=== PATIENT | female | born 1945 | race Caucasian/White ===

== ENCOUNTER 2023-06-11 10:49 | Emergency (ER) | payer MEDICARE ==
--- NOTE | 2023-06-11 11:14 | ERPHSYRPT ---
- History of Present Illness Time Seen by Provider: 06/11/23 11:05 Source: patient, family Exam Limitations: no limitations Physician History: This is a 77-year-old white female patient of Dr. Miller who was brought into the emergency department by the patient's son secondary to dizziness symptoms over the last 2 days. Patient did fall onto her left shoulder on Tuesday prior to this evaluation. However, she does not recall losing consciousness or hitting her head. Patient does have a history of dementia. Patient was placed on Bactrim DS to treat recent urinary tract infection. This is the only new medication that she is on. Patient does complain of some nausea without vomiting or diarrhea. Patient denies chest pain. Patient denies shortness of breath. Patient denies abdominal pain. Patient also states that she feels weak and confused. Patient has a history of dementia, hypertension, coronary artery disease (has a pacemaker/defibrillator in place), gastroesophageal reflux disease, anxiety and depression. Timing/Duration: day(s), worse Severity: mild Character of Deficits: none Deficits: no difficulties Baseline/Normal Cognition: alert oriented x 3 Current Cognition: alert oriented x 3 Baseline Gait: walks w/o assistance Associated Symptoms: confusion, nausea, weakness, No loss of consciousness, No vomiting, No slurred speech, No trouble walking, No vision changes Allergies/Adverse Reactions: No Known Drug Allergies Allergy (Unverified 06/11/23 11:05) Travel Risk - International Travel Have you traveled outside of the country in past 3 weeks: No - Emerging Infectious Disease Are you exhibiting symptoms associated with any current EIDs: No - Review of Systems Constitutional: Weakness Eyes: No Symptoms Ears, Nose, & Throat: No Symptoms Respiratory: No Symptoms Cardiac: No Symptoms Abdominal/Gastrointestinal: Nausea Genitourinary Symptoms: No Symptoms Musculoskeletal: No Symptoms Skin: No Symptoms Neurological: Dizziness Psychological: No Symptoms Endocrine: No Symptoms Hematologic/Lymphatic: No Symptoms Immunological/Allergic: No Symptoms All Other Systems: Reviewed and Negative - Past Medical History Neurological History: Dementia Cardiac History: Coronary Artery Disease, Hypertension GI Medical History: GERD Psycho-Social History: Anxiety, Depression - Past Surgical History Past Surgical History: Yes Cardiac: Internal Defibrillator, Pacemaker Musculoskeletal: Orthopedic Surgery Other Surgical History: ankle surgery - Nursing Vital Signs Nursing Vital Signs: Initial Vital Signs Temperature 97.5 F 06/11/23 11:18 Pulse Rate 84 06/11/23 11:18 Respiratory Rate 18 06/11/23 11:18 Blood Pressure 109/67 06/11/23 11:18 O2 Sat by Pulse Oximetry 97 06/11/23 11:18 Pain Scale Pain Intensity 4 - Alivia Coma Scale Best Eye Response (Alivia): (4) open spontaneously Best Verbal Response (Alivia): (4) confused conversation Best Motor Response (Alivia): (6) obeys commands Alivia Total: 14 - Physical Exam General Appearance: no apparent distress, alert, anxiety Eye Exam: bilateral eye: normal inspection, PERRL, EOMI Ears, Nose, Throat Exam: normal ENT inspection, moist mucous membranes Neck Exam: normal inspection, non-tender, supple, full range of motion Respiratory: normal breath sounds, lungs clear, airway intact, No chest tenderness, No respiratory distress Cardiovascular: regular rate/rhythm, normal heart sounds, normal peripheral pulses Gastrointestinal: soft, normal bowel sounds, No tenderness Pelvic Exam: not done Rectal Exam: not done Back Exam: normal inspection, normal range of motion, No CVA tenderness, No vertebral tenderness Extremity Exam: normal inspection, normal range of motion, pelvis stable Mental Status: alert, oriented x 3, 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 No acute ischemic changes on today's twelve-lead EKG.) Ordered Tests: Active Orders 24 hr Category Date Time Status EKG-ER Only STAT Care 06/11/23 11:20 Active IV Insertion STAT Care 06/11/23 11:20 Active CERVICAL SPINE WO CONTRAST [CT] Stat Exams 06/11/23 11:29 Completed HEAD WITHOUT CONTRAST [CT] Stat Exams 06/11/23 11:20 Completed SHOULDER Stat Exams 06/11/23 11:29 Taken CBC W DIFF Stat Lab 06/11/23 11:20 Results CMP Stat Lab 06/11/23 11:20 Completed CULTURE,URINE Stat Lab 06/11/23 12:56 Received MAGNESIUM Stat Lab 06/11/23 11:20 Completed Manual Differential NC Stat Lab 06/11/23 11:20 Results Pathologist Review Stat Lab 06/11/23 11:20 Results TROPONIN Q4H Lab 06/11/23 11:20 Completed TROPONIN Q4H Lab 06/11/23 15:30 Ordered TROPONIN Q4H Lab 06/11/23 19:30 Ordered UA W/RFX UR CULTURE Stat Lab 06/11/23 12:56 Completed Medication Summary Discontinued Medications Generic Name Dose Route Start Last Admin Trade Name Wendy PRN Reason Stop Dose Admin Acetaminophen 650 mg 06/11/23 11:31 06/11/23 11:36 Acetaminophen 325 Mg Tablet PO 06/11/23 11:32 650 mg STAT STA Administration Acetaminophen Confirm 06/11/23 11:36 Acetaminophen 325 Mg Tablet Administered 06/11/23 11:37 Dose 650 mg .ROUTE .STK-MED ONE Ondansetron HCl 4 mg 06/11/23 11:20 06/11/23 11:24 Ondansetron Hcl 4 Mg/2 Ml Vial IV 06/11/23 11:21 4 mg STAT ONE Administration Ondansetron HCl Confirm 06/11/23 11:23 Ondansetron Hcl 4 Mg/2 Ml Vial Administered 06/11/23 11:24 Dose 4 mg .ROUTE .STK-MED ONE Lab/Rad Data: Laboratory Result Diagrams 06/11/23 11:20 06/11/23 11:20 Laboratory Results 06/11/23 06/11/23 06/11/23 Range/Units 12:56 11:20 11:20 WBC (4.0-10.5) x10^3/uL RBC (4.1-5.4) x10^6/uL Hgb (12.0-16.0) g/dL Hct (35-47) % MCV (78-100) fL MCH (26-32) pg MCHC (32-36) g/dL RDW (11.5-14.0) % Plt Count (150-450) x10^3/uL MPV (7.5-11.0) fL Segmented Neutrophils (36.0-66.0) % Lymphocytes (Manual) (24-44) % Monocytes (Manual) (0.0-12.0) % Eosinophils (Manual) (0.00-3.0) % Platelet Estimate (NORMAL) RBC Morphology Smear Path Review Sodium 133 L (135-145) mmol/L Potassium 3.9 (3.5-5.1) mmol/L Chloride 105 (98-107) mmol/L Carbon Dioxide 18 L (22-30) mmol/L Anion Gap 13.8 (5-15) MEQ/L BUN 14 (7-17) mg/dL Creatinine 0.88 (0.52-1.04) mg/dL Estimated GFR 68.5 ML/MIN Glucose 107 H (74-106) mg/dL Calcium 8.6 (8.4-10.2) mg/dL Magnesium 1.6 (1.6-2.3) mg/dL Total Bilirubin 0.90 (0.2-1.3) mg/dL AST 68 H (14-36) U/L ALT 52 H (0-35) U/L Alkaline Phosphatase 82 (38-126) U/L Troponin I < 0.012 (0.000-0.033) ng/mL Serum Total Protein 6.2 L (6.3-8.2) g/dL Albumin 3.6 (3.5-5.0) g/dL Urine Color Dark Yellow A (Yellow) Urine Appearance Cloudy A (Clear) Urine pH 5.5 (4.6-8.0) Ur Specific [place] 1.025 (1.005-1.030) Urine Protein Trace A (Negative) Urine Glucose (UA) Negative (Negative) mg/dL Urine Ketones 15 A (Negative) Urine Blood Negative (Negative) Urine Nitrite Negative (Negative) Urine Bilirubin Negative (Negative) Urine Urobilinogen 1.0 A (0.2) mg/dL Ur Leukocyte Esterase Small A (Negative) U Hyaline Cast (Auto) 3-5 A (0-2) /LPF Urine Microscopic RBC 6-10 A (0-5) /HPF Urine Microscopic WBC 6-10 A (0-5) /HPF Ur Epithelial Cells Many A (None Seen) /HPF Urine Bacteria Moderate A (None Seen) /HPF Urine Culture Reflexed YES (NO) 06/11/23 Range/Units 11:20 WBC 2.3 L (4.0-10.5) x10^3/uL RBC 3.90 L (4.1-5.4) x10^6/uL Hgb 13.1 (12.0-16.0) g/dL Hct 37.1 (35-47) % MCV 95.1 (78-100) fL MCH 33.6 H (26-32) pg MCHC 35.3 (32-36) g/dL RDW 11.1 L (11.5-14.0) % Plt Count 135 L (150-450) x10^3/uL MPV 10.0 (7.5-11.0) fL Segmented Neutrophils 76 H (36.0-66.0) % Lymphocytes (Manual) 16 L (24-44) % Monocytes (Manual) 6 (0.0-12.0) % Eosinophils (Manual) 2 (0.00-3.0) % Platelet Estimate NORMAL (NORMAL) RBC Morphology NORMAL Smear Path Review Pending Sodium (135-145) mmol/L Potassium (3.5-5.1) mmol/L Chloride (98-107) mmol/L Carbon Dioxide (22-30) mmol/L Anion Gap (5-15) MEQ/L BUN (7-17) mg/dL Creatinine (0.52-1.04) mg/dL Estimated GFR ML/MIN Glucose (74-106) mg/dL Calcium (8.4-10.2) mg/dL Magnesium (1.6-2.3) mg/dL Total Bilirubin (0.2-1.3) mg/dL AST (14-36) U/L ALT (0-35) U/L Alkaline Phosphatase (38-126) U/L Troponin I (0.000-0.033) ng/mL Serum Total Protein (6.3-8.2) g/dL Albumin (3.5-5.0) g/dL Urine Color (Yellow) Urine Appearance (Clear) Urine pH (4.6-8.0) Ur Specific [place] (1.005-1.030) Urine Protein (Negative) Urine Glucose (UA) (Negative) mg/dL Urine Ketones (Negative) Urine Blood (Negative) Urine Nitrite (Negative) Urine Bilirubin (Negative) Urine Urobilinogen (0.2) mg/dL Ur Leukocyte Esterase (Negative) U Hyaline Cast (Auto) (0-2) /LPF Urine Microscopic RBC (0-5) /HPF Urine Microscopic WBC (0-5) /HPF Ur Epithelial Cells (None Seen) /HPF Urine Bacteria (None Seen) /HPF Urine Culture Reflexed (NO) - Progress Progress: re-examined Progress Note: 06/11/23 11:14 My medical decision making and the assignment of moderate complexity to this patient's medical issue today is based on review of the patient's past medical history, review the patient's medication list, review of patient drug allergy list, history present illness and physical findings on examination. The workup in this patient includes placement of intravenous line, infusion of low rate intravenous fluid, CBC, CMP, urinalysis, twelve-lead EKG, troponin level, CT sc an of the head without contrast. Differential diagnosis includes CVA, TIA, worsening dementia, anemia, UTI, dehydration, electrolyte abnormalities 06/11/23 15:01 I interpreted the patient's laboratory data results. Patient does have a urinary tract infection and is mildly dehydrated. The CT scan of the head without contrast was interpreted by radiologist and I reviewed the interpretation. The CT of the scan shows no intracranial extra axial hematoma or hemorrhage. The CT scan of the cervical spine without contrast was interpreted by the radiologist and I reviewed the interpretation. There are no complete pression fractures noted. There was a question of a transverse lying in the styloid region of the patient's cervical spine. This is believed to be artifact. The patient does not have any cervical tenderness whatsoever. She does have finding of mild cervical spondylosis. There is also multilevel mild disc bulges seen causing ventral thecal sac indentation with mild bilateral neuroforaminal narrowing. 06/11/23 15:04 Will encourage the patient to increase oral intake and will remotely send a prescription of cefdinir to her pharmacy since she has completed her Bactrim DS antibiotic and still has evidence of a mild urinary tract infection. We will await the urine culture results to see if it is necessary to change her antibiotics. I interpreted the patient's x-ray of the left shoulder. There is no evidence of any acute fracture or dislocation. 06/11/23 15:07 Counseled pt/family regarding: lab results, diagnosis, rad results Medical Desision Making - Independent Historian Additional History obtained from: Family - Diagnostic Testing Diagnostic test were ordered, analyzed, and reviewed by me: Yes Radiological Interpretation: Interpreted by me, Reviewed by me, Teleradiologist Report - Risk of complications The pt has a mod risk of morbidity or mortality based on: Need for prescription drug management - Departure Departure Disposition: Home Clinical Impression: Weakness, UTI (urinary tract infection), Dehydration, Left shoulder pain Condition: Stable Critical Care Time: No Referrals: RASHAD MILLER [Primary Care Provider] - Follow up/PCP as directed Additional Instructions: Drink plenty of fluids. Take all your medications as prescribed including the new oral antibiotic. Call your primary care provider on 06/13/2023 to make arrangements for follow-up appointment for further evaluation and management Prescriptions: Cefdinir 300 mg PO BID #[id number] cap
[2023-06-11 11:19] VITALS: TEMP 97.5
[2023-06-11] MEDS ORDERED: Zofran 4 MG/2 ML VIAL ONE (11:23)
[2023-06-11] MEDS: Zofran 4 MG/2 ML VIAL IV ONE (11:24)
[2023-06-11 11:32] LABS: Hematocrit 37.1 % (35-47); Hemoglobin 13.1 g/dL (12.0-16.0); Mean Cell Volume 95.1 fL (78-100); Mean Corpuscular Hemoglobin 33.6 pg (26-32); Mean Corpuscular Hgb Concent. 35.3 g/dL (32-36); Platelet Count 135 x10^3/uL (150-450); Red Cell Distribution Width 11.1 % (11.5-14.0); White Blood Count 2.3 x10^3/uL (4.0-10.5)
[2023-06-11] MEDS ORDERED: TYLENOL 325 MG ONE (11:36)
[2023-06-11] MEDS: TYLENOL 325 MG PO STA (11:36)
[2023-06-11 11:46] LABS: ALBUMIN 3.6 g/dL (3.5-5.0); ANION GAP 13.8 MEQ/L (5-15); BILIRUBIN,TOTAL 0.9 mg/dL (0.2-1.3); Calcium 8.6 mg/dL (8.4-10.2); Creatinine 1 0.88 mg/dL (0.52-1.04); EST GLOMERULAR FILTRATION RATE 68.5 ML/MIN; MAGNESIUM 1.6 mg/dL (1.6-2.3); Potassium 3.9 mmol/L (3.5-5.1); Total Protein 6.2 g/dL (6.3-8.2)
[2023-06-11 12:18] LABS: Eosinophil 2 % (0.00-3.0); Lymphocytes 16 % (24-44); Monocyte 6 % (0.0-12.0); Neutrophils 76 % (36.0-66.0); Total Cells Counted 100
[2023-06-11 12:19] LABS: Platelet Estimate NORMAL (NORMAL)
--- NOTE | 2023-06-11 12:41 | XRAY ---
CLINICAL HISTORY: Confusion; dizziness COMPARISON: None. TECHNIQUE: Axial non-contrast CT scan of the brain was performed from the skull base to the high parietal region. Coronal and sagittal reconstructions were also obtained. One of the following dose reduction techniques was utilized for this exam: Automated exposure control, adjustment of the mA and/or kV according to patient size, and use of iterative reconstruction. FINDINGS: No intracerebral or extra axial hematoma. No established territorial ischemic infarction is seen. No obvious space-occupying lesions are seen. Mild age-appropriate brain involutional changes are seen as evident by prominent intra and extra-axial spaces. The visualized brain parenchyma shows a normal appearance. No focal parenchymal abnormalities are demonstrated. Tran-white matter differentiation is maintained. No midline shifts or deformity. Normal CT appearance of the posterior fossa structures namely the cerebellar hemispheres, brainstem and cerebellar peduncles. No definite calvarium fractures. Scanned paranasal sinuses are clear. IMPRESSION: 1. No intracerebral or extra axial hematoma. No established territorial ischemic infarction seen.No obvious space-occupying lesions seen. 2. Mild age-appropriate brain involutional changes. Electronically Signed by: Dilip Salguero MD. (06/11/2023 12:37:31 EDT)
--- NOTE | 2023-06-11 13:04 | XRAY ---
CLINICAL HISTORY: Fall injury COMPARISON: None. TECHNIQUE: Thin axial CT of the cervical spine was performed with sagittal and coronal reconstructions without contrast administration. One of the following dose reduction techniques was utilized for this exam: Automated exposure control, adjustment of the mA and/or kV according to patient size, and use of iterative reconstruction. FINDINGS: No compression vertebral fracture is seen. No listhesis is identified. The transverse lucent line is seen in the left styloid process, likely artifactual, however considering the history of trauma, the possibility of undisplaced fracture can not be entirely excluded. Straightening of the cervical spine is seen likely due to muscular spasm. Mild cervical spondylosis seen as evident by marginal osteophytes. The vertebral bodies are normal in height. No lytic or sclerotic bone lesion. The craniovertebral measures are unremarkable. Intervertebral disc spaces appear preserved. Normal disc height is noted. Multilevel mild disc bulges are seen causing ventral thecal sac indentation with mild bilateral neural foraminal narrowing. IMPRESSION: No compression vertebral fracture is seen. No listhesis is identified. The transverse lucent line is seen in the styloid process, likely artifactual, however considering the history of trauma, the possibility of undisplaced fracture can not be entirely excluded. Straightening of the cervical spine is seen likely due to muscular spasm. Mild cervical spondylosis. Multilevel mild disc bulges are seen causing ventral thecal sac indentation with mild bilateral neural foraminal narrowing. Electronically Signed by: Dilip Salguero MD. (06/11/2023 12:59:26 EDT)
[2023-06-11 13:14] LABS: Appearance Cloudy (Clear); Bacteria Moderate /HPF (None Seen); Bilirubin Negative (Negative); Blood Negative (Negative); Epithelial Cells Many /HPF (None Seen); Glucose, Urine Negative (Negative); Ketones 15 (Negative); Leukocyte Esterase Small (Negative); Nitrite Negative (Negative); Ph 5.5 (4.6-8.0); Protein,Urine Dip Trace (Negative); Specific Gravity 1.025 (1.005-1.030)
[2023-06-11 13:15] LABS: ADD URINE CULTURE? YES (NO)
[2023-06-11 15:04] VITALS: BP 97/59; PULSE 78; RESP 23; O2SAT 95
--- NOTE | 2023-06-11 20:36 | XRAY ---
Indication: Pain following fall. Comparison: None 3 view left shoulder demonstrates osteopenia, mild lower lumbar cervical generative changes, and incompletely visualized left AICD. No other bony, articular, or soft tissue abnormalities.
== END 2023-06-11 15:23 | disposition home or self-care (01) ==
LOC: ED 10:49
DX: N39.0 Urinary tract infection, site not specified (principal); R53.1 Weakness; E86.0 Dehydration; M25.512 Pain in left shoulder; R42 Dizziness and giddiness; R11.0 Nausea; I10 Essential (primary) hypertension; Z79.899 Other long term (current) drug therapy
CPT/HCPCS: 36000; 36415; 70450; 72125; 73030; 80053; 81001; 83735; 84484; 85025; 87086; 93005; 96374; 99284; J2405; A9270-GY

== ENCOUNTER 2023-09-29 17:56 | Observation (INO) | payer MEDICARE ==
--- NOTE | 2023-09-29 18:45 | ERPHSYRPT ---
- History of Present Illness Time Seen by Provider: 09/29/23 18:11 Source: patient, EMS, [facility] Exam Limitations: no limitations Patient Subjective Stated Complaint: Fall at her residence just prior to arrival to ER. She lives in an assisted living facility. Patient did hit her head. She is confused (dementia) and unable to indicate if she lost conciousness or not. She states she believes she was in a jaime to get to the bathroom and just fell. Triage Nursing Assessment: Patient arrived by ambulance. She is alert to name and place but confused to time and situation. C/O headache in temples. Denies pain anywhere else at this time. Physician History: 78 years old female with history of dementia and resident of assisted living, cardiomyopathy with pacemaker/defibrillator implant, having issues with balance at her baseline, was rushing to the bathroom when walker slipped underneath her and she fell on the floor. Did hit her head. No loss of consciousness. Patient is complaining of mild dull aching bitemporal headache without any focal numbness tingling or weakness. Patient is unsure if she lost her consciousness. Moving all 4 extremities, denies any chest pain, abdominal pain nausea vomit ing. No difficulty breathing. Not a good historian and history is limited. Allergies/Adverse Reactions: No Known Drug Allergies Allergy (Verified 09/29/23 18:03) Home Medications: Acetaminophen [8Hr Arthritis Pain] 650 mg PO BID 09/29/23 [History] Ascorbic Acid 500 mg [Vitamin C 500 MG] 500 mg PO DAILY 09/29/23 [History] Atorvastatin Calcium 40 mg PO DAILY 09/29/23 [History] Cholecalciferol (Vitamin D3) [Vitamin D] See Rx Instructions .ROUTE .COMPLEX 09/29/23 [History] Cranberry See Rx Instructions .ROUTE .COMPLEX 09/29/23 [History] Fluoxetine HCl [Prozac] 40 mg PO DAILY 09/29/23 [History] Memantine HCl 10 mg PO BID 09/29/23 [History] Multivit-Min/Iron Fum/Folic AC [Multivitamin-Minerals Tablet] 1 tab PO DAILY 09/29/23 [History] [place]-3/Dha/Epa/Fish Oil [Fish Oil 1,200 mg Softgel] 1,200 mg PO DAILY 09/29/23 [History] Omeprazole 20 mg PO DAILY 09/29/23 [History] Trazodone HCl 50 mg [Desyrel 50 mg] 50 mg PO HS 09/29/23 [History] carvediloL [Coreg] 25 mg PO BID 09/29/23 [History] Hx Tetanus, Diphtheria Vaccination/Date Given: No Hx Influenza Vaccination/Date Given: Yes Hx Pneumococcal Vaccination/Date Given: Yes Travel Risk - International Travel Have you traveled outside of the country in past 3 weeks: No - Emerging Infectious Disease Are you exhibiting symptoms associated with any current EIDs: No - Review of Systems Constitutional: No Symptoms Ears, Nose, & Throat: No Symptoms Respiratory: No Symptoms Cardiac: No Symptoms Abdominal/Gastrointestinal: No Symptoms Genitourinary Symptoms: No Symptoms Musculoskeletal: Arthralgias Skin: No Symptoms Neurological: Headache Hematologic/Lymphatic: No Symptoms - Past Medical History Pertinent Past Medical History: Yes Neurological History: Dementia Cardiac History: Coronary Artery Disease, High Cholesterol, Hypertension GI Medical History: GERD Psycho-Social History: Anxiety, Depression Other Medical History: insomnia. Patient is a poor historian with dementia. Medical diagnosis information taken from transfer paperwork and previous ER rec ord. - Past Surgical History Past Surgical History: Yes Cardiac: Internal Defibrillator, Pacemaker Musculoskeletal: Orthopedic Surgery Other Surgical History: ankle surgery, insomnia. Patient is a poor historian with dementia. Surgical history information taken from transfer paperwork and previous ER record. - Social History Smoking Status: Never smoker Exposure to second hand smoke: No Drug Use: none - Social Determinants of Health Will the patient participate in the screening: Yes Do you worry about a steady place to live?: No Do you have any problems with any of the following?: No known problems In the past 12 months,have you had to go without utilities?: No Transportation Issues: No Has anyone in your support network made you feel unsafe?: No Have you or anyone in your house had to go without enough: No - Nursing Vital Signs Nursing Vital Signs: Initial Vital Signs Temperature 97.6 F 09/29/23 18:00 Pulse Rate 70 09/29/23 18:00 Respiratory Rate 15 09/29/23 18:00 Blood Pressure 132/103 09/29/23 18:00 O2 Sat by Pulse Oximetry 97 09/29/23 18:00 Pain Scale Pain Intensity 4 - Alivia Coma Score Best Eye Response (Dolores): (4) open spontaneously Best Verbal Response (Alivia): (5) oriented Best Motor Response (Alivia): (6) obeys commands Alivia Total: 15 - Physical Exam General Appearance: no apparent distress, alert Head Injury: no evidence of injury Eye Exam: PERRL/EOMI, eyes nml inspection ENT Exam: airway nml, No evidence of ENT injury, No dental injury, No nml ext.inspection Neck Exam: supple, trachea midline, normal alignment, normal inspection Respiratory/Chest Exam: normal breath sounds, respiratory distress, No chest tenderness Cardiovascular Exam: normal heart sounds, regular rate/rhythm Gastrointestinal Exam: soft, No tenderness Back Exam: normal inspection Extremity Exam: normal inspection, normal range of motion Neurologic Exam: alert, oriented x 3, cooperative, parer II-XII nml as tested, sensation nml, No motor deficits Skin Exam: normal color SpO2 Interpretation: normal SpO2: 97 O2 Delivery: Room Air - Course EKG Interpreted by Me: RATE (70 atrial sensed ventricular paced rhythm), NORMAL AXIS, NORMAL INTERVALS, Non-specific ST Changes Ordered Tests: Active Orders 24 hr Category Date Time Status EKG-ER Only STAT Care 09/29/23 18:41 Active IV Insertion STAT Care 09/29/23 18:41 Active NPO (ED) STAT Care 09/29/23 18:41 Active CERVICAL SPINE WO CONTRAST [CT] Stat Exams 09/29/23 18:11 Taken CHEST 1 VIEW (PORTABLE) Stat Exams 09/29/23 18:41 Taken HEAD WITHOUT CONTRAST [CT] Stat Exams 09/29/23 18:11 Taken CBC W DIFF Stat Lab 09/29/23 18:55 Completed CMP Stat Lab 09/29/23 18:55 Completed CULTURE,URINE Stat Lab 09/29/23 18:56 Received TROPONIN Q4H Lab 09/29/23 18:55 Completed TROPONIN Q4H Lab 09/29/23 22:45 Ordered TROPONIN Q4H Lab 09/30/23 02:45 Ordered UA W/RFX UR CULTURE Stat Lab 09/29/23 18:56 Completed Transfer Order Routine Transfer 09/29/23 Ordered Medication Summary Generic Name Dose Route Start Last Admin Trade Name Freq PRN Reason Stop Dose Admin Sodium Chloride 1,000 mls @ 125 mls/hr 09/29/23 18:45 09/29/23 18:53 Sodium Chloride 0.9% 1000 Ml IV 10/29/23 18:44 125 mls/hr .Q8H SILVERIO Administration Ofloxacin 1 ml 09/29/23 21:00 09/29/23 21:11 Ofloxacin 0.3% Opth 5 Ml Eye Drops OP 10/29/23 20:59 1 ml UD SILVERIO Administration Discontinued Medications Generic Name Dose Route Start Last Admin Trade Name Wendy PRN Reason Stop Dose Admin Acetaminophen 975 mg 09/29/23 18:44 09/29/23 18:51 Acetaminophen 325 Mg Tablet PO 09/29/23 18:45 975 mg STAT STA Administration Acetaminophen Confirm 09/29/23 18:47 Acetaminophen 325 Mg Tablet Administered 09/29/23 18:48 Dose 975 mg .ROUTE .STK-MED ONE Ofloxacin 5 ml 09/29/23 20:42 Ofloxacin 5 Ml Ear Drops OT 09/29/23 20:43 STAT ONE Ofloxacin Confirm 09/29/23 20:51 Ofloxacin 0.3% Opth 5 Ml Eye Drops Administered 09/29/23 20:52 Dose 5 ml OP .STK-MED ONE Lab/Rad Data: Laboratory Result Diagrams 09/29/23 18:55 09/29/23 18:55 Laboratory Results 09/29/23 09/29/23 09/29/23 Range/Units 18:56 18:55 18:55 WBC (3.98-10.04) x10^3/uL RBC (3.93-5.22) x10^6/uL Hgb (11.2-15.7) g/dL Hct (34.1-44.9) % MCV (79.4-94.8) fL MCH (25.6-32.2) pg MCHC (32.2-35.5) g/dL RDW (11.7-14.4) % Plt Count (182-369) x10^3/uL MPV (9.4-12.3) fL Gran % (34.0-71.1) % Immature Gran % (Auto) (0.001-0.429) % Nucleat RBC Rel Count (0.00-0.2) % Eos # (Auto) (0.04-0.36) x10^3/uL Immature Gran # (Auto) (0.001-0.031) x10^3u/L Absolute Lymphs (auto) (1.18-3.74) x10^3/uL Absolute Monos (auto) (0.24-0.86) x10^3/uL Absolute Nucleated RBC (0.00-0.012) x10^3u/L Lymphocytes % (19.3-51.7) % Monocytes % (4.7-12.5) % Eosinophils % (0.7-5.8) % Basophils % (0.1-1.2) % Absolute Granulocytes (1.56-6.13) x10^3/uL Basophils # (0.01-0.08) x10^3/uL Sodium 140 (135-145) mmol/L Potassium 3.5 (3.5-5.1) mmol/L Chloride 108 H (98-107) mmol/L Carbon Dioxide 22 (22-30) mmol/L Anion Gap 13.0 (5-15) MEQ/L BUN 14 (7-17) mg/dL Creatinine 0.77 (0.52-1.04) mg/dL Estimated GFR 79.9 ML/MIN Glucose 100 (74-106) mg/dL Calcium 9.4 (8.4-10.2) mg/dL Total Bilirubin 1.40 H (0.2-1.3) mg/dL AST 25 (14-36) U/L ALT 21 (0-35) U/L Alkaline Phosphatase 82 (38-126) U/L Troponin I < 0.012 (0.000-0.033) ng/mL Serum Total Protein 6.6 (6.3-8.2) g/dL Albumin 4.0 (3.5-5.0) g/dL Urine Color Yellow (Yellow) Urine Appearance Clear (Clear) Urine pH 7.0 (4.6-8.0) Ur Specific [place] 1.020 (1.005-1.030) Urine Protein Negative (Negative) Urine Glucose (UA) Negative (Negative) mg/dL Urine Ketones Trace A (Negative) Urine Blood Negative (Negative) Urine Nitrite Negative (Negative) Urine Bilirubin Negative (Negative) Urine Urobilinogen 1.0 A (0.2) mg/dL Ur Leukocyte Esterase Small A (Negative) U Hyaline Cast (Auto) NONE SEEN (0-2) /LPF Urine Microscopic RBC 0-2 (0-5) /HPF Urine Microscopic WBC 3-5 (0-5) /HPF Ur Epithelial Cells Few (None Seen) /HPF Urine Bacteria Few A (None Seen) /HPF Urine Culture Reflexed YES (NO) 09/29/23 Range/Units 18:55 WBC 8.3 (3.98-10.04) x10^3/uL RBC 4.21 (3.93-5.22) x10^6/uL Hgb 14.1 (11.2-15.7) g/dL Hct 40.4 (34.1-44.9) % MCV 96.0 H (79.4-94.8) fL MCH 33.5 H (25.6-32.2) pg MCHC 34.9 (32.2-35.5) g/dL RDW 10.8 L (11.7-14.4) % Plt Count 242 (182-369) x10^3/uL MPV 10.1 (9.4-12.3) fL Gran % 59.8 (34.0-71.1) % Immature Gran % (Auto) 0.2 (0.001-0.429) % Nucleat RBC Rel Count 0.0 (0.00-0.2) % Eos # (Auto) 0.16 (0.04-0.36) x10^3/uL Immature Gran # (Auto) 0.02 (0.001-0.031) x10^3u/L Absolute Lymphs (auto) 2.55 (1.18-3.74) x10^3/uL Absolute Monos (auto) 0.54 (0.24-0.86) x10^3/uL Absolute Nucleated RBC 0.00 (0.00-0.012) x10^3u/L Lymphocytes % 30.9 (19.3-51.7) % Monocytes % 6.5 (4.7-12.5) % Eosinophils % 1.9 (0.7-5.8) % Basophils % 0.7 (0.1-1.2) % Absolute Granulocytes 4.93 (1.56-6.13) x10^3/uL Basophils # 0.06 (0.01-0.08) x10^3/uL Sodium (135-145) mmol/L Potassium (3.5-5.1) mmol/L Chloride (98-107) mmol/L Carbon Dioxide (22-30) mmol/L Anion Gap (5-15) MEQ/L BUN (7-17) mg/dL Creatinine (0.52-1.04) mg/dL Estimated GFR ML/MIN Glucose (74-106) mg/dL Calcium (8.4-10.2) mg/dL Total Bilirubin (0.2-1.3) mg/dL AST (14-36) U/L ALT (0-35) U/L Alkaline Phosphatase (38-126) U/L Troponin I (0.000-0.033) ng/mL Serum Total Protein (6.3-8.2) g/dL Albumin (3.5-5.0) g/dL Urine Color (Yellow) Urine Appearance (Clear) Urine pH (4.6-8.0) Ur Specific [place] (1.005-1.030) Urine Protein (Negative) Urine Glucose (UA) (Negative) mg/dL Urine Ketones (Negative) Urine Blood (Negative) Urine Nitrite (Negative) Urine Bilirubin (Negative) Urine Urobilinogen (0.2) mg/dL Ur Leukocyte Esterase (Negative) U Hyaline Cast (Auto) (0-2) /LPF Urine Microscopic RBC (0-5) /HPF Urine Microscopic WBC (0-5) /HPF Ur Epithelial Cells (None Seen) /HPF Urine Bacteria (None Seen) /HPF Urine Culture Reflexed (NO) - Progress Progress: re-examined Progress Note: 09/29/23 21:16 78 years old resident of assisted living is evaluated in the ER for ground-level fall with questionable hitting her head. Patient has nonfocal neuroexam t hroughout stay in the ER. She is not any distress. She is given gentle hydration. EKG showed paced rhythm with no ST elevations. Workup showed normal white count, fairly unremarkable chemistries and negative initial troponin. Chest x-ray is negative for any acute cardiopulmonary findings reviewed by me, official report is pending. CT head and cervical spine are negative for any acute findings. She has a questionable UTI. She also has left otitis externa and started on ofloxacin drops. I have made patient get up and walk with the walker but she is severely dizzy with standing. Orthostatics showed patient blood pressure dropping from 144 systolic on lying to 91 systolic on standing a nd increase of heart rate from 66-96. She is given a fluid bolus, I believe this could be the reason for her fall. I have discussed with patient and family about admission and all the workup results which they understand and agree. Discussed with Dr. Colón and patient is being admitted. Discussed with .: Other (Dr. 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 - Discussion of managment Care discussed with:: hospitalist Reviewed:: Test results Agreed on:: Treatment plan, place in obs Will see patient: in hospital - Diagnostic Testing Diagnostic test were ordered, analyzed, and reviewed by me: Yes Radiological Interpretation: Interpreted by me, Reviewed by me, Teleradiologist Report - Risk of complications The pt has a mod risk of morbidity or mortality based on: Need for prescription drug management The pt has a high risk of morbidity or mortality based on: Decision regarding hospitilization or escalation of hosp level of care - Departure Departure Disposition: Observation Clinical Impression: Orthostatic dizziness, Fall, Otitis externa, Generalized weakness Condition: Stable Critical Care Time: No Referrals: RASHAD ROQUE [Primary Care Provider] - Follow up/PCP as directed
[2023-09-29] MEDS ORDERED: TYLENOL 325 MG ONE (18:47)
[2023-09-29] MEDS ORDERED: Sodium Chloride 0.9% 1000 ML 1,000 ML ONE (18:47)
[2023-09-29] MEDS: TYLENOL 325 MG PO STA (18:51)
[2023-09-29] MEDS: Sodium Chloride 0.9% 1000 ML 1,000 ML IV SCH (18:53)
[2023-09-29 19:12] LABS: Absolute Neutrophil Ct (ANC) 4.93 x10^3/uL (1.56-6.13); BASOPHIL % 0.7 % (0.1-1.2); Basophil (Absolute #) 0.06 x10^3/uL (0.01-0.08); Eosinophil % 1.9 % (0.7-5.8); Eosinophil (Absolute #) 0.16 x10^3/uL (0.04-0.36); Hematocrit 40.4 % (34.1-44.9); Hemoglobin 14.1 g/dL (11.2-15.7); IMMATURE GRAN # 0.02 x10^3u/L (0.001-0.031); IMMATURE GRAN % 0.2 % (0.001-0.429); Lymphocyte (Absolute #) 2.55 x10^3/uL (1.18-3.74); Lymphocytes % 30.9 % (19.3-51.7); Mean Corpuscular Hemoglobin 33.5 pg (25.6-32.2); Mean Corpuscular Hgb Concent. 34.9 g/dL (32.2-35.5); Mean Platelet Volume 10.1 fL (9.4-12.3); Monocyte (Absolute #) 0.54 x10^3/uL (0.24-0.86); Monocytes % 6.5 % (4.7-12.5); Neutrophil % 59.8 % (34.0-71.1); Platelet Count 242 x10^3/uL (182-369); Red Blood Count 4.21 x10^6/uL (3.93-5.22); Red Cell Distribution Width 10.8 % (11.7-14.4); White Blood Count 8.3 x10^3/uL (3.98-10.04)
[2023-09-29 19:14] LABS: BILIRUBIN,TOTAL 1.4 mg/dL (0.2-1.3); Calcium 9.4 mg/dL (8.4-10.2); Creatinine 1 0.77 mg/dL (0.52-1.04); EST GLOMERULAR FILTRATION RATE 79.9 ML/MIN; Potassium 3.5 mmol/L (3.5-5.1); Total Protein 6.6 g/dL (6.3-8.2)
[2023-09-29 19:32] LABS: Appearance Clear (Clear); Bacteria Few /HPF (None Seen); Bilirubin Negative (Negative); Blood Negative (Negative); Epithelial Cells Few /HPF (None Seen); Glucose, Urine Negative (Negative); Hyaline Casts NONE SEEN /LPF (0-2); Ketones Trace (Negative); Leukocyte Esterase Small (Negative); Nitrite Negative (Negative); Protein,Urine Dip Negative (Negative); RBC 0-2 /HPF (0-5)
[2023-09-29 19:34] LABS: ADD URINE CULTURE? YES (NO)
[2023-09-29] MEDS ORDERED: Ocuflox OPHTHALMIC 5 ML OP ONE (20:51)
[2023-09-29] MEDS: Ocuflox OPHTHALMIC 5 ML OP SCH (21:11)
[2023-09-29] MEDS: Floxin Otic 5 ML OT ONE (23:06)
--- NOTE | 2023-09-29 23:26 | XRAY ---
Indication: Status post fall. Multiple contiguous axial images obtained through the head without contrast. Comparison: June 11, 2023 Normal appearing brain parenchyma, ventricles, and bony calvarium for patient's age. Visualized paranasal sinuses and mastoid air cells are clear. Impression: Continued normal CT head without contrast exam.
--- NOTE | 2023-09-29 23:28 | XRAY ---
Indication: Status post fall. Dementia. Multiple contiguous axial images obtained through the cervical spine. Sagittal and coronal reformatted images obtained. Comparison: None Axial images negative for acute fracture, suspicious bone lesions, or spinal canal stenosis. Again mild/moderate multilevel bilateral degenerative facet hypertrophy. Sagittal and coronal reformatted images again demonstrate normal alignment with vertebral body heights/disc spaces maintained. No acute compression fracture, subluxation, or jumped facet. Normal appearing craniocervical junction. Again left TMJ degenerative changes. Visualized noncontrasted soft tissues including on the apices are unremarkable. Impression: 1. Continued negative acute fracture/subluxation. 2. Again chronic findings including multilevel bilateral degenerative facet hypertrophy and left TMJ degenerative changes.
--- NOTE | 2023-09-29 23:36 | XRAY ---
Indication: Status post fall. Comparison: None Portable chest hyperinflated with left infrahilar discoid atelectasis/scarring and tiny left lung base pleural effusion/thickening. Remaining heart and right lung unremarkable with incidental left AICD. Bony thorax intact.
[2023-09-30] MEDS: TYLENOL 325 MG PO PRN (00:28)
[2023-09-30] MEDS: Zofran 4 MG/2 ML VIAL IV PRN (00:28)
[2023-09-30] MEDS: Sodium Chloride 0.9% 1000 ML 1,000 ML IV SCH (01:00)
--- NOTE | 2023-09-30 02:55 | PCM.HP ---
History of Present Illness - Chief Complaint Chief Complaint: Orthostatic dizzinessfall Date: 09/29/23 History of Present Illness: Ms. GALDAMEZ is a 78 year old female with a past medical history significant for hypertension, hyperlipidemia, GERD and dementia who was brought to the hospital after having a fall while using her walker at her [employer]. She believes she hit her head but did not lose consciousness. No dizziness or lightheadness prior to fall. No chest pain or palpitations. No nausea, vomiting or diarrhea. No focal weakness of upper/lower extremities. She does complain of a posterior headache. CT head negative for acute bleed. She is a poor historian and unable to provide significant history. - Review of Systems All Other Systems: Unable due to condition, Unable due to dementia Medications & Allergies Home Medications: Home Medication List Acetaminophen 500 mg [Tylenol Extra Strength 500 mg] 2 tab PO Q8H PRN 09/29/23 [History Confirmed 09/29/23] Acetaminophen [8Hr Arthritis Pain] 650 mg PO BID 09/29/23 [History Confirmed 09/29/23] Ascorbic Acid 500 mg [Vitamin C 500 MG] 500 mg PO DAILY 09/29/23 [History Confirmed 09/29/23] Atorvastatin Calcium 40 mg PO DAILY 09/29/23 [History Confirmed 09/29/23] Cholecalciferol (Vitamin D3) [Vitamin D] See Rx Instructions .ROUTE .COMPLEX 09/29/23 [History Confirmed 09/29/23] Cranberry See Rx Instructions .ROUTE .COMPLEX 09/29/23 [History Confirmed 09/29/23] Fish Oil/Dha/Epa [Fish Oil 1,200 mg Fish Oil] 1 each PO DAILY 09/29/23 [History Confirmed 09/29/23] Fluoxetine HCl [Prozac] 40 mg PO DAILY 09/29/23 [History Confirmed 09/29/23] Memantine HCl 10 mg PO BID 09/29/23 [History Confirmed 09/29/23] Multivit-Min/Iron Fum/Folic AC [Multivitamin-Minerals Tablet] 1 tab PO DAILY 09/29/23 [History Confirmed 09/29/23] Noble-3/Dha/Epa/Fish Oil [Fish Oil 1,200 mg Softgel] 1,200 mg PO DAILY 09/29/23 [History Confirmed 09/29/23] Omeprazole 20 mg PO DAILY 09/29/23 [History Confirmed 09/29/23] Trazodone HCl 50 mg [Desyrel 50 mg] 50 mg PO HS 09/29/23 [History Confirmed 09/29/23] carvediloL [Coreg] 25 mg PO BID 09/29/23 [History Confirmed 09/29/23] Allergies/Adverse Reactions: Allergies Allergy/AdvReac Type Severity Reaction Status Date / Time No Known Drug Allergies Allergy Verified 09/29/23 22:56 - Past Medical History Past Medical History: Yes Neurological History: Dementia ENT History: No Pertinent History Cardiac History: Coronary Artery Disease, High Cholesterol, Hypertension Respiratory History: No Pertinent History Endocrine Medical History: No Pertinent History Musculoskelatal History: Arthritis GI Medical History: GERD History: No Pertinent History Pyscho-Social History: Anxiety, Depression Reproductive Disorders: No Pertinent History Comment: insomnia. Patient is a poor historian with dementia. Medical diagnosis information taken from transfer paperwork and previous ER record. - Past Surgical History Past Surgical History: Yes Neuro Surgical History: No Pertinent History Cardiac History: Cardiac Catheterization, Internal Defibrillator, Pacemaker Respiratory Surgery: No Pertinent History GI Surgical History: No Pertinent History Genitourinary Surgical Hx: No Pertinent History Musculskeletal Surgical Hx: Orthopedic Surgery Female Surgical History: No Pertinent History Other Surgical History: ankle surgery, insomnia. Patient is a poor historian with dementia. Surgical history information taken from transfer paperwork and previous ER record. - Social History Smoking Status: Never smoker Exposure to second hand smoke: No Alcohol: None Drug Use: none - Social Determinants of Health Will the patient participate in the screening: Yes Do you worry about a steady place to live?: No Do you have any problems with any of the following?: No known problems In the past 12 months,have you had to go without utilities?: No Have you or anyone in your house had to go without enough: No Transportation Issues: No Has anyone in your support network made you feel unsafe?: No Does the patient want assistance with any of the above?: No - Physical Exam Vital Signs: Vital Signs - 24 hr Temp Pulse Resp BP BP Pulse Ox 09/29/23 23:18 96.7 F 69 18 135/62 99 09/29/23 23:00 97 09/29/23 22:00 65 17 124/52 96 09/29/23 21:45 62 11 L 132/63 09/29/23 21:34 64 13 124/70 09/29/23 21:31 75 19 129/93 09/29/23 21:30 97 09/29/23 21:16 84 19 126/79 09/29/23 21:00 98.2 F 78 14 146/77 09/29/23 20:59 66 16 91/71 09/29/23 20:58 80 13 113/77 09/29/23 20:56 82 16 144/78 09/29/23 20:45 68 10 L 136/78 09/29/23 20:30 70 7 L 119/82 97 09/29/23 20:15 64 14 142/72 09/29/23 20:00 64 17 132/75 96 09/29/23 19:45 64 16 133/72 09/29/23 19:30 64 14 125/73 95 09/29/23 19:29 76 18 96 09/29/23 19:20 78 14 97 09/29/23 19:00 76 16 123/70 96 09/29/23 18:04 73 13 132/103 09/29/23 18:00 97.6 F 70 15 132/103 97 General Appearance: no apparent distress Neurologic Exam: alert, cooperative Ears, Nose, Throat Exam: dry mucous membranes Neck Exam: supple Respiratory Exam: No respiratory distress Cardiovascular Exam: regular rate/rhythm Gastrointestinal/Abdomen Exam: soft Extremity Exam: No pedal edema, No swelling Skin Exam: normal color, No rash Results - Labs Lab/Micro Results: Lab Results-Last 24 Hours 09/29/23 09/29/23 09/29/23 Range/Units 18:55 18:55 18:55 WBC 8.3 (3.98-10.04) x10^3/uL RBC 4.21 (3.93-5.22) x10^6/uL Hgb 14.1 (11.2-15.7) g/dL Hct 40.4 (34.1-44.9) % MCV 96.0 H (79.4-94.8) fL MCH 33.5 H (25.6-32.2) pg MCHC 34.9 (32.2-35.5) g/dL RDW 10.8 L (11.7-14.4) % Plt Count 242 (182-369) x10^3/uL MPV 10.1 (9.4-12.3) fL Gran % 59.8 (34.0-71.1) % Immature Gran % (Auto) 0.2 (0.001-0.429) % Nucleat RBC Rel Count 0.0 (0.00-0.2) % Eos # (Auto) 0.16 (0.04-0.36) x10^3/uL Immature Gran # (Auto) 0.02 (0.001-0.031) x10^3u/L Absolute Lymphs (auto) 2.55 (1.18-3.74) x10^3/uL Absolute Monos (auto) 0.54 (0.24-0.86) x10^3/uL Absolute Nucleated RBC 0.00 (0.00-0.012) x10^3u/L Lymphocytes % 30.9 (19.3-51.7) % Monocytes % 6.5 (4.7-12.5) % Eosinophils % 1.9 (0.7-5.8) % Basophils % 0.7 (0.1-1.2) % Absolute Granulocytes 4.93 (1.56-6.13) x10^3/uL Basophils # 0.06 (0.01-0.08) x10^3/uL Sodium 140 (135-145) mmol/L Potassium 3.5 (3.5-5.1) mmol/L Chloride 108 H (98-107) mmol/L Carbon Dioxide 22 (22-30) mmol/L Anion Gap 13.0 (5-15) MEQ/L BUN 14 (7-17) mg/dL Creatinine 0.77 (0.52-1.04) mg/dL Estimated GFR 79.9 ML/MIN Glucose 100 (74-106) mg/dL Calcium 9.4 (8.4-10.2) mg/dL Total Bilirubin 1.40 H (0.2-1.3) mg/dL AST 25 (14-36) U/L ALT 21 (0-35) U/L Alkaline Phosphatase 82 (38-126) U/L Troponin I < 0.012 (0.000-0.033) ng/mL Serum Total Protein 6.6 (6.3-8.2) g/dL Albumin 4.0 (3.5-5.0) g/dL Urine Color (Yellow) Urine Appearance (Clear) Urine pH (4.6-8.0) Ur Specific [place] (1.005-1.030) Urine Protein (Negative) Urine Glucose (UA) (Negative) mg/dL Urine Ketones (Negative) Urine Blood (Negative) Urine Nitrite (Negative) Urine Bilirubin (Negative) Urine Urobilinogen (0.2) mg/dL Ur Leukocyte Esterase (Negative) U Hyaline Cast (Auto) (0-2) /LPF Urine Microscopic RBC (0-5) /HPF Urine Microscopic WBC (0-5) /HPF Ur Epithelial Cells (None Seen) /HPF Urine Bacteria (None Seen) /HPF Urine Culture Reflexed (NO) 09/29/23 09/29/23 Range/Units 18:56 21:50 WBC (3.98-10.04) x10^3/uL RBC (3.93-5.22) x10^6/uL Hgb (11.2-15.7) g/dL Hct (34.1-44.9) % MCV (79.4-94.8) fL MCH (25.6-32.2) pg MCHC (32.2-35.5) g/dL RDW (11.7-14.4) % Plt Count (182-369) x10^3/uL MPV (9.4-12.3) fL Gran % (34.0-71.1) % Immature Gran % (Auto) (0.001-0.429) % Nucleat RBC Rel Count (0.00-0.2) % Eos # (Auto) (0.04-0.36) x10^3/uL Immature Gran # (Auto) (0.001-0.031) x10^3u/L Absolute Lymphs (auto) (1.18-3.74) x10^3/uL Absolute Monos (auto) (0.24-0.86) x10^3/uL Absolute Nucleated RBC (0.00-0.012) x10^3u/L Lymphocytes % (19.3-51.7) % Monocytes % (4.7-12.5) % Eosinophils % (0.7-5.8) % Basophils % (0.1-1.2) % Absolute Granulocytes (1.56-6.13) x10^3/uL Basophils # (0.01-0.08) x10^3/uL Sodium (135-145) mmol/L Potassium (3.5-5.1) mmol/L Chloride (98-107) mmol/L Carbon Dioxide (22-30) mmol/L Anion Gap (5-15) MEQ/L BUN (7-17) mg/dL Creatinine (0.52-1.04) mg/dL Estimated GFR ML/MIN Glucose (74-106) mg/dL Calcium (8.4-10.2) mg/dL Total Bilirubin (0.2-1.3) mg/dL AST (14-36) U/L ALT (0-35) U/L Alkaline Phosphatase (38-126) U/L Troponin I < 0.012 (0.000-0.033) ng/mL Serum Total Protein (6.3-8.2) g/dL Albumin (3.5-5.0) g/dL Urine Color Yellow (Yellow) Urine Appearance Clear (Clear) Urine pH 7.0 (4.6-8.0) Ur Specific [place] 1.020 (1.005-1.030) Urine Protein Negative (Negative) Urine Glucose (UA) Negative (Negative) mg/dL Urine Ketones Trace A (Negative) Urine Blood Negative (Negative) Urine Nitrite Negative (Negative) Urine Bilirubin Negative (Negative) Urine Urobilinogen 1.0 A (0.2) mg/dL Ur Leukocyte Esterase Small A (Negative) U Hyaline Cast (Auto) NONE SEEN (0-2) /LPF Urine Microscopic RBC 0-2 (0-5) /HPF Urine Microscopic WBC 3-5 (0-5) /HPF Ur Epithelial Cells Few (None Seen) /HPF Urine Bacteria Few A (None Seen) /HPF Urine Culture Reflexed YES (NO) - Radiology Impressions Radiology Exams & Impressions: Radiology Procedures Category Date Time Status CERVICAL SPINE WO CONTRAST [CT] Stat Exams 09/29/23 18:11 Completed CHEST 1 VIEW (PORTABLE) Stat Exams 09/29/23 18:41 Completed HEAD WITHOUT CONTRAST [CT] Stat Exams 09/29/23 18:11 Completed Assessment/Plan (1) Fall Current Visit: Yes Status: Acute Assessment & Plan: Likely related to orthostasis and dehydration, doubt CVA 1. Admit to hospital 2. Neuro checks 3. PT/OT eval 4. DVT prophylaxis Code(s): W19.XXXA - UNSPECIFIED FALL, INITIAL ENCOUNTER (2) Essential (primary) hypertension Current Visit: Yes Status: Acute Assessment & Plan: Blood pressure under good control 1. Continue bp meds 2. Low Na diet 3. Monitor blood pressure readings Code(s): I10 - ESSENTIAL (PRIMARY) HYPERTENSION (3) Generalized weakness Current Visit: Yes Status: Acute Assessment & Plan: Likely from dehydration 1. IVFs 2. PT/OT 3. Fall precautions Code(s): R53.1 - WEAKNESS (4) Dehydration Current Visit: No Status: Acute Code(s): E86.0 - DEHYDRATION (5) UTI (urinary tract infection) Current Visit: No Status: Acute Assessment & Plan: Suspect mild UTI based on symptoms 1. Empiric antibiotics 2. Follow up urine culture Code(s): N39.0 - URINARY TRACT INFECTION, SITE NOT SPECIFIED Telemedicine Encounter - Telemedicine Encounter Telemedicine Encounter: "The entirety of this encounter was performed via Telemedicine" This visit was performed using real-time audio and video connection between my location and thepatients locationwith the assistance of a surrogateat the patients location. Written or verbal consent was obtained from the patient/guardian to perform [facility]. Any patient questions regarding the telemedicine interaction were answered.
[2023-09-30 06:27] LABS: ANION GAP 10.8 MEQ/L (5-15); Calcium 8.7 mg/dL (8.4-10.2); Creatinine 1 0.69 mg/dL (0.52-1.04); EST GLOMERULAR FILTRATION RATE 89.9 ML/MIN; Potassium 3.7 mmol/L (3.5-5.1)
[2023-09-30 08:03] VITALS: TEMP 97.5
[2023-09-30 08:23] LABS: Hematocrit 36.4 % (34.1-44.9); Hemoglobin 12.6 g/dL (11.2-15.7); Mean Cell Volume 96.8 fL (79.4-94.8); Mean Corpuscular Hemoglobin 33.5 pg (25.6-32.2); Mean Corpuscular Hgb Concent. 34.6 g/dL (32.2-35.5); Mean Platelet Volume 10.5 fL (9.4-12.3); Platelet Count 199 x10^3/uL (182-369); Red Blood Count 3.76 x10^6/uL (3.93-5.22); Red Cell Distribution Width 11.2 % (11.7-14.4); White Blood Count 6.2 x10^3/uL (3.98-10.04)
[2023-09-30] MEDS: ANTIVERT 25 MG PO PRN (10:18)
[2023-09-30] MEDS: THERAGRAN MULTIVITAMIN PO SCH (11:12)
[2023-09-30] MEDS: Namenda 5 MG PO SCH (11:12)
[2023-09-30] MEDS: FISH OIL 1,000 MG CAPSULE PO SCH (11:12)
[2023-09-30] MEDS: ZOCOR 20MG PO SCH (11:12)
[2023-09-30] MEDS: Docusate Sodium 100 MG PO PRN (11:12)
[2023-09-30] MEDS: ROCEPHIN 1 GM / 100 ML NaCl 1 GM/100 ML IVPB IV SCH (11:12)
[2023-09-30] MEDS: COREG 12.5 MG PO SCH (11:13)
[2023-09-30] MEDS: Vitamin C 500 MG PO SCH (11:13)
[2023-09-30] MEDS: Prozac 20 MG PO SCH (11:13)
[2023-09-30] MEDS: Protonix 40MG Tablet PO SCH (11:17)
[2023-09-30] MEDS: ENOXAPARIN SODIUM SQ SCH (12:15)
[2023-09-30 14:17] VITALS: O2SAT 97
--- NOTE | 2023-09-30 15:07 | PCM.DS ---
Discharge Summary Date of Admission: 09/29/23 22:52 Date of Discharge: 09/30/23 Admitting Physician: BÁRBARA BOOTHE MD Primary Care Provider: RASHAD ROQUE Allergies Allergies nitrofurantoin [From Macrobid] Adverse Reaction (Verified 09/30/23 11:03) Nausea Hospital Summary - Hospital Course Hospital Course: 09/30/23 Ms. GALDAMEZ is a 78 year old female with a past medical history significant for hypertension, hyperlipidemia, GERD and dementia who was brought to the hospital after having a fall while using her walker at her [facility]. She believes she hit her head but did not lose consciousness. No dizziness or lightheadedness prior to fall. No chest pain or palpitations. No nausea, vomiting or diarrhea. No focal weakness of upper/lower extremities. She does complain of a posterior headache. CT head negative for acute bleed. She is a poor historian and unable to provide significant history. She lives in assisted living at [facility]. She is wanting to go home today. She c/o left ear pain and some dizziness when laying to sitting. BP fine when going from sitting to standing. Meclizine started. PT evaluated pt and she did well. She is RA 97%. Echo results pending and she can f/u OP as she denies CP. Will d/c with antibiotics for UTI and Right otitis media. She denies CP, SOB, abd. pain, N/V/D. - Vitals & Intake/Output Vital Signs: Vital Signs Temperature 97.5 F 09/30/23 12:00 Pulse Rate 76 09/30/23 12:00 Respiratory Rate 17 09/30/23 12:00 Blood Pressure 134/62 09/30/23 12:00 O2 Sat by Pulse Oximetry 97 09/30/23 12:00 Intake & Output: Intake & Output 09/28/23 09/29/23 09/30/23 10/01/23 11:59 11:59 11:59 11:59 Intake Total 573 120 Balance 573 120 Weight 67 kg - Lab Result Diagrams: 09/30/23 05:48 09/30/23 05:48 Lab Results-Last 24 Hrs: Lab Results-Last 24 Hours 09/29/23 09/29/23 09/29/23 Range/Units 18:55 18:55 18:55 WBC 8.3 (3.98-10.04) x10^3/uL RBC 4.21 (3.93-5.22) x10^6/uL Hgb 14.1 (11.2-15.7) g/dL Hct 40.4 (34.1-44.9) % MCV 96.0 H (79.4-94.8) fL MCH 33.5 H (25.6-32.2) pg MCHC 34.9 (32.2-35.5) g/dL RDW 10.8 L (11.7-14.4) % Plt Count 242 (182-369) x10^3/uL MPV 10.1 (9.4-12.3) fL Gran % 59.8 (34.0-71.1) % Immature Gran % (Auto) 0.2 (0.001-0.429) % Nucleat RBC Rel Count 0.0 (0.00-0.2) % Eos # (Auto) 0.16 (0.04-0.36) x10^3/uL Immature Gran # (Auto) 0.02 (0.001-0.031) x10^3u/L Absolute Lymphs (auto) 2.55 (1.18-3.74) x10^3/uL Absolute Monos (auto) 0.54 (0.24-0.86) x10^3/uL Absolute Nucleated RBC 0.00 (0.00-0.012) x10^3u/L Lymphocytes % 30.9 (19.3-51.7) % Monocytes % 6.5 (4.7-12.5) % Eosinophils % 1.9 (0.7-5.8) % Basophils % 0.7 (0.1-1.2) % Absolute Granulocytes 4.93 (1.56-6.13) x10^3/uL Basophils # 0.06 (0.01-0.08) x10^3/uL Sodium 140 (135-145) mmol/L Potassium 3.5 (3.5-5.1) mmol/L Chloride 108 H (98-107) mmol/L Carbon Dioxide 22 (22-30) mmol/L Anion Gap 13.0 (5-15) MEQ/L BUN 14 (7-17) mg/dL Creatinine 0.77 (0.52-1.04) mg/dL Estimated GFR 79.9 ML/MIN Glucose 100 (74-106) mg/dL Calcium 9.4 (8.4-10.2) mg/dL Total Bilirubin 1.40 H (0.2-1.3) mg/dL AST 25 (14-36) U/L ALT 21 (0-35) U/L Alkaline Phosphatase 82 (38-126) U/L Troponin I < 0.012 (0.000-0.033) ng/mL Serum Total Protein 6.6 (6.3-8.2) g/dL Albumin 4.0 (3.5-5.0) g/dL Urine Color (Yellow) Urine Appearance (Clear) Urine pH (4.6-8.0) Ur Specific [place] (1.005-1.030) Urine Protein (Negative) Urine Glucose (UA) (Negative) mg/dL Urine Ketones (Negative) Urine Blood (Negative) Urine Nitrite (Negative) Urine Bilirubin (Negative) Urine Urobilinogen (0.2) mg/dL Ur Leukocyte Esterase (Negative) U Hyaline Cast (Auto) (0-2) /LPF Urine Microscopic RBC (0-5) /HPF Urine Microscopic WBC (0-5) /HPF Ur Epithelial Cells (None Seen) /HPF Urine Bacteria (None Seen) /HPF Urine Culture Reflexed (NO) 09/29/23 09/29/23 09/30/23 Range/Units 18:56 21:50 04:00 WBC (3.98-10.04) x10^3/uL RBC (3.93-5.22) x10^6/uL Hgb (11.2-15.7) g/dL Hct (34.1-44.9) % MCV (79.4-94.8) fL MCH (25.6-32.2) pg MCHC (32.2-35.5) g/dL RDW (11.7-14.4) % Plt Count (182-369) x10^3/uL MPV (9.4-12.3) fL Gran % (34.0-71.1) % Immature Gran % (Auto) (0.001-0.429) % Nucleat RBC Rel Count (0.00-0.2) % Eos # (Auto) (0.04-0.36) x10^3/uL Immature Gran # (Auto) (0.001-0.031) x10^3u/L Absolute Lymphs (auto) (1.18-3.74) x10^3/uL Absolute Monos (auto) (0.24-0.86) x10^3/uL Absolute Nucleated RBC (0.00-0.012) x10^3u/L Lymphocytes % (19.3-51.7) % Monocytes % (4.7-12.5) % Eosinophils % (0.7-5.8) % Basophils % (0.1-1.2) % Absolute Granulocytes (1.56-6.13) x10^3/uL Basophils # (0.01-0.08) x10^3/uL Sodium (135-145) mmol/L Potassium (3.5-5.1) mmol/L Chloride (98-107) mmol/L Carbon Dioxide (22-30) mmol/L Anion Gap (5-15) MEQ/L BUN (7-17) mg/dL Creatinine (0.52-1.04) mg/dL Estimated GFR ML/MIN Glucose (74-106) mg/dL Calcium (8.4-10.2) mg/dL Total Bilirubin (0.2-1.3) mg/dL AST (14-36) U/L ALT (0-35) U/L Alkaline Phosphatase (38-126) U/L Troponin I < 0.012 < 0.012 (0.000-0.033) ng/mL Serum Total Protein (6.3-8.2) g/dL Albumin (3.5-5.0) g/dL Urine Color Yellow (Yellow) Urine Appearance Clear (Clear) Urine pH 7.0 (4.6-8.0) Ur Specific [place] 1.020 (1.005-1.030) Urine Protein Negative (Negative) Urine Glucose (UA) Negative (Negative) mg/dL Urine Ketones Trace A (Negative) Urine Blood Negative (Negative) Urine Nitrite Negative (Negative) Urine Bilirubin Negative (Negative) Urine Urobilinogen 1.0 A (0.2) mg/dL Ur Leukocyte Esterase Small A (Negative) U Hyaline Cast (Auto) NONE SEEN (0-2) /LPF Urine Microscopic RBC 0-2 (0-5) /HPF Urine Microscopic WBC 3-5 (0-5) /HPF Ur Epithelial Cells Few (None Seen) /HPF Urine Bacteria Few A (None Seen) /HPF Urine Culture Reflexed YES (NO) 09/30/23 09/30/23 09/30/23 Range/Units 05:48 05:48 05:48 WBC 6.2 (3.98-10.04) x10^3/uL RBC 3.76 L (3.93-5.22) x10^6/uL Hgb 12.6 (11.2-15.7) g/dL Hct 36.4 (34.1-44.9) % MCV 96.8 H (79.4-94.8) fL MCH 33.5 H (25.6-32.2) pg MCHC 34.6 (32.2-35.5) g/dL RDW 11.2 L (11.7-14.4) % Plt Count 199 (182-369) x10^3/uL MPV 10.5 (9.4-12.3) fL Gran % (34.0-71.1) % Immature Gran % (Auto) (0.001-0.429) % Nucleat RBC Rel Count (0.00-0.2) % Eos # (Auto) (0.04-0.36) x10^3/uL Immature Gran # (Auto) (0.001-0.031) x10^3u/L Absolute Lymphs (auto) (1.18-3.74) x10^3/uL Absolute Monos (auto) (0.24-0.86) x10^3/uL Absolute Nucleated RBC (0.00-0.012) x10^3u/L Lymphocytes % (19.3-51.7) % Monocytes % (4.7-12.5) % Eosinophils % (0.7-5.8) % Basophils % (0.1-1.2) % Absolute Granulocytes (1.56-6.13) x10^3/uL Basophils # (0.01-0.08) x10^3/uL Sodium 138 (135-145) mmol/L Potassium 3.7 (3.5-5.1) mmol/L Chloride 109 H (98-107) mmol/L Carbon Dioxide 22 (22-30) mmol/L Anion Gap 10.8 (5-15) MEQ/L BUN 11 (7-17) mg/dL Creatinine 0.69 (0.52-1.04) mg/dL Estimated GFR 89.9 ML/MIN Glucose 92 (74-106) mg/dL Calcium 8.7 (8.4-10.2) mg/dL Total Bilirubin 1.20 (0.2-1.3) mg/dL AST (14-36) U/L ALT (0-35) U/L Alkaline Phosphatase (38-126) U/L Troponin I (0.000-0.033) ng/mL Serum Total Protein (6.3-8.2) g/dL Albumin (3.5-5.0) g/dL Urine Color (Yellow) Urine Appearance (Clear) Urine pH (4.6-8.0) Ur Specific [place] (1.005-1.030) Urine Protein (Negative) Urine Glucose (UA) (Negative) mg/dL Urine Ketones (Negative) Urine Blood (Negative) Urine Nitrite (Negative) Urine Bilirubin (Negative) Urine Urobilinogen (0.2) mg/dL Ur Leukocyte Esterase (Negative) U Hyaline Cast (Auto) (0-2) /LPF Urine Microscopic RBC (0-5) /HPF Urine Microscopic WBC (0-5) /HPF Ur Epithelial Cells (None Seen) /HPF Urine Bacteria (None Seen) /HPF Urine Culture Reflexed (NO) - Radiology Exams Ordered Rad Exams-Entire Visit: Radiology Procedures Category Date Time Status CERVICAL SPINE WO CONTRAST [CT] Stat Exams 09/29/23 18:11 Completed CHEST 1 VIEW (PORTABLE) Stat Exams 09/29/23 18:41 Completed ECHO W/2D AND DOPPLER [US] Routine Exams 09/30/23 13:49 Ordered HEAD WITHOUT CONTRAST [CT] Stat Exams 09/29/23 18:11 Completed - Procedures and Test Procedures and Tests throughout Hospitalization: Therapy Orders & Screens 09/29/23 23:35 OT Screen per Nursing Assess ONCE Comment: Protocol Order Physician Instructions: Greater than 3 points order OT Admission Screening Reason For Exam: Triggered on Admission Diagnosis: Orthostatic dizzinessfall Open Wound/Cellutlitis/Pressure Ulcers: No Acute Fx/ORIF/Change in wt bearing status: No Severe MUSCULOSKELETAL pain: No ADL Dysfunction: Yes Acute CVA w/Hemiparesis/Hemiplegia: No Decreased Functional Mobility/Strength: Yes Sprain/Strain: No Acute Post-op Mobility Dysfunction: No Total Points: 4 PT Screen per Nursing Assess ONCE Comment: Protocol Order Physician Instructions: Greater than 3 points order PT Admission Screenin Reason For Exam: Triggered on Admission Diagnosis: Orthostatic dizzinessfall Open Wound/Cellutlitis/Pressure Ulcers: No Acute Fx/ORIF/Change in wt bearing status: No Severe MUSCULOSKELETAL pain: No ADL Dysfunction: Yes Acute CVA w/Hemiparesis/Hemiplegia: No Decreased Functional Mobility/Strength: Yes Sprain/Strain: No Acute Post-op Mobility Dysfunction: No Total Points: 4 ST Screen per Nursing Assess ONCE Comment: Protocol Order Physician Instructions: Greater than [address] Admission Screening Reason For Exam: Triggered on Admission Diagnosis: Orthostatic dizzinessfall CVA/Dyshpagia/Aphasia: No Cognitive Deficits: No Dehydration/Nutrition Deficit: Yes Reflux: Yes Oral-Motor Difficulties: No Pneumonia: No [facility]ci Resident: No Total Points: 8 09/30/23 00:21 PT Eval & Treat (MD Order) ONCE Reason for Eval:: fall Diagnosis: Orthostatic dizzinessfall OT Eval and Treat (MD Order) ONCE Comment: Physician Instructions: Reason For Exam: Diagnosis: Orthostatic dizzinessfall Discharge Exam General Appearance: no apparent distress, alert Neurologic Exam: alert, oriented x 3, cooperative, normal mood/affect, nml cerebellar function, sensation nml, confusion (at baseline), No motor deficits Eye Exam: PERRL, EOMI, eyes nml inspection Ears, Nose, Throat Exam: pharynx normal, moist mucous membranes, TM abnormal (L) (increased ear wax left) Neck Exam: normal inspection, non-tender, supple, full range of motion Respiratory Exam: normal breath sounds, lungs clear, No respiratory distress Cardiovascular Exam: regular rate/rhythm, normal heart sounds Gastrointestinal/Abdomen Exam: soft, No tenderness, No mass Pelvic Exam: deferred Rectal Exam: deferred Back Exam: normal inspection, normal range of motion, No CVA tenderness, No vertebral tenderness Extremity Exam: normal inspection, normal range of motion Skin Exam: normal color, warm, dry Wound Assessment: Skin/Wound Assessment Wound/Incision Assessment Start: 09/29/23 23:35 Text: Status: Active Freq: Q6H Protocol: Document 09/30/23 05:23 AR (Rec: 09/30/23 05:26 AR [id number]) Wound Photo Photo Taken No Final Diagnosis/Problem List - Final Discharge Diagnosis/Problem (1) Fall Current Visit: Yes Status: Acute Code(s): W19.XXXA - UNSPECIFIED FALL, INITIAL ENCOUNTER (2) Essential (primary) hypertension Current Visit: Yes Status: Acute Code(s): I10 - ESSENTIAL (PRIMARY) HYPERTENSION (3) Generalized weakness Current Visit: Yes Status: Acute Code(s): R53.1 - WEAKNESS (4) Dehydration Current Visit: No Status: Acute Code(s): E86.0 - DEHYDRATION (5) UTI (urinary tract infection) Current Visit: No Status: Acute Assessment & Plan: (1) Fall Current Visit: Yes Status: Acute Assessment & Plan: Likely related to orthostasis and dehydration, doubt CVA 1. Admit to hospital 2. Neuro checks 3. PT/OT eval 4. DVT prophylaxis 09/24 - radiology results reviewed Code(s): W19.XXXA - UNSPECIFIED FALL, INITIAL ENCOUNTER (2) Essential (primary) hypertension Current Visit: Yes Status: Acute Assessment & Plan: Blood pressure under good control 1. Continue bp meds 2. Low Na+ diet 3. Monitor blood pressure readings Code(s): I10 - ESSENTIAL (PRIMARY) HYPERTENSION (3) Generalized weakness Current Visit: Yes Status: Acute Assessment & Plan: Likely from dehydration 1. IVFs 2. PT/OT 3. Fall precautions 09/29 - did well with PT today- no concerns Code(s): R53.1 - WEAKNESS (4) Dehydration - IVF Current Visit: No Status: Acute Code(s): E86.0 - DEHYDRATION (5) UTI (urinary tract infection) Current Visit: No Status: Acute Assessment & Plan: Suspect mild UTI based on symptoms 1. Empiric antibiotics 2. Follow up urine culture 09/29 - will follow UC OP Code(s): N39.0 - URINARY TRACT INFECTION, SITE NOT SPECIFIED (6) Otitis media Current Visit: Yes Status: Acute Assessment & Plan: - Continue antibiotics PO OP Code(s): H66.90 - OTITIS MEDIA, UNSPECIFIED, UNSPECIFIED EAR (7) Otitis externa Current Visit: Yes Status: Acute Assessment & Plan: - ear gtts- continue OP Code(s): H60.90 - UNSPECIFIED OTITIS EXTERNA, UNSPECIFIED EAR (8) Orthostatic dizziness Current Visit: Yes Status: Acute Assessment & Plan: - improved today - continue meclizine - transition slowly to prevent falls - Echo results pending- can f/u OP Code(s): R42 - DIZZINESS AND GIDDINESS - Discharge Discharge Date: 09/30/23 Disposition: Home, Self-Care Condition: Stable Prescriptions: New Meclizine HCl 25 mg [Antivert 25 mg] 25 mg PO Q8H PRN PRN 7 Days #21 tablet PRN Reason: Dizziness Continue Trazodone HCl 50 mg [Desyrel 50 mg] 50 mg PO HS Omeprazole 20 mg PO DAILY [place]-3/Dha/Epa/Fish Oil [Fish Oil 1,200 mg Softgel] 1,200 mg PO DAILY Cholecalciferol (Vitamin D3) [Vitamin D] See Rx Instructions .ROUTE .COMPLEX Multivit-Min/Iron Fum/Folic AC [Multivitamin-Minerals Tablet] 1 tab PO DAILY Memantine HCl 10 mg PO BID Ascorbic Acid 500 mg [Vitamin C 500 MG] 500 mg PO DAILY Acetaminophen [8Hr Arthritis Pain] 650 mg PO BID Fluoxetine HCl [Prozac] 40 mg PO DAILY carvediloL [Coreg] 25 mg PO BID Atorvastatin Calcium 40 mg PO DAILY Cran[place] See Rx Instructions .ROUTE .COMPLEX Fish Oil/Dha/Epa [Fish Oil 1,200 mg Fish Oil] 1 each PO DAILY Acetaminophen 500 mg [Tylenol Extra Strength 500 mg] 2 tab PO Q8H PRN PRN Reason: Pain Additional Instructions: [facility] HAS BEEN SET UP FOR PHYSICAL AND OCCUPATIONAL THERAPY- THEY WILL CONTACT YOU TO ARRANGE A TIME TO COME SEE YOU. YOU CAN REACH THEM AT [phone]. Transition slowly from laying to sitting, then sitting to standing, to prevent falling. Sit for a few minutes before each transition. Follow up with: RASHAD ROQUE [Primary Care Provider] - 10/10/23 1:00 pm
[2023-09-30 17:39] VITALS: BP 153/70; PULSE 71; RESP 16
[2023-09-30] MEDS ORDERED: DESYREL 50 MG PO SCH (22:00)
== END 2023-09-30 17:49 | disposition home or self-care (01) ==
LOC: ED 17:56 → MED SURG 22:52
PROVIDERS: ADMIT Internal Medicine Nephrology; ATTEND Internal Medicine Nephrology
DX: N39.0 Urinary tract infection, site not specified (principal); I10 Essential (primary) hypertension; W19.XXXA Unspecified fall, initial encounter; R53.1 Weakness; E86.0 Dehydration; H66.92 Otitis media, unspecified, left ear; R42 Dizziness and giddiness; K21.9 Gastro-esophageal reflux disease without esophagitis; F03.90 Unspecified dementia, unspecified severity, without behavioral disturbance, psychotic disturbance, mood disturbance, and anxiety; E78.5 Hyperlipidemia, unspecified; I25.10 Atherosclerotic heart disease of native coronary artery without angina pectoris; Z79.899 Other long term (current) drug therapy
CPT/HCPCS: 36000; 36415; 70450; 71045; 72125; 80048; 80053; 81001; 82247; 84484; 85025; 85027; 87086; 93005; 93268; 93306; 97161; 97165; 99285; G0378; Q3014; J0696; J2405; A9270-GY